=== PATIENT | female | born 1965 | race Caucasian/White ===

== ENCOUNTER 2017-09-20 01:44 | Inpatient (IN) ==
[2017-09-20] MEDS ORDERED: methylPREDNISolone 125 MG/2 ML VIAL IVP ONE (01:51)
[2017-09-20] MEDS ORDERED: 0.9 % Sodium Chloride 1,000 ML IVC ONE (01:51)
[2017-09-20] MEDS ORDERED: Ipratropium/Albuterol Neb 3 ML IH ONE (01:51)
--- NOTE | 2017-09-20 01:57 | Emergency Department Note ---
Disposition Clinical Impression: COPD exacerbation Disposition: Admitted As Inpatient Condition: Good SOB HPI - General Chief Complaint: ED Shortness of Breath/Dyspnea Stated Complaint: EULOGIO Time Seen by Provider: 09/20/17 01:46 Source: patient Mode of arrival: private vehicle Limitations: no limitations Nursing Notes Reviewed: Yes Vital Signs Reviewed: Yes - History of Present Illness 52-year-old female history of chronic smoking for 30 years presents to the ER with a chief complaint of shortness of breath. Symptoms onset for about one week. Reports a cough with productive sputum during this time. No formal diagnosis of COPD. She is not on oxygen supplementation at home nor does she take any inhalers. States worsening of symptoms today which prompted her to come here. No history of coronary artery disease, DVT or pulmonary embolism. No other complaints. Pt Subjective Complaint: shortness of breath, cough Onset (ago): day(s) Context: recent illness Severity: moderate Consistency/Duration: constant Improves with: nothing Worsens with: nothing Associated symptoms: Reports: cough, sputum production. Denies: chest pain, fever Treatment prior to arrival: none Cough present: Yes Cough Description: Involuntary Cough Frequency: Intermittent - Related Data Home oxygen amount: none Home Medications Medication Instructions Recorded Confirmed Escitalopram [Lexapro] 10 mg PO DAILY 09/20/17 09/20/17 Allergies Allergy/AdvReac Type Severity Reaction Status Date / Time No Known Allergies Allergy Verified 09/20/17 01:58 All systems ED: reviewed and negative except as stated. Constitutional: Denies: fever Cardiovascular: Denies: chest pain Respiratory: Reports: cough, dyspnea, sputum production Gastrointestinal: Denies: nausea, vomiting Past Medical History - Past Medical History Attestation: Yes The following information was validated with the patient. Source: patient Medical history: Reports: no medical history Physical Exam - General Limitations: no limitations General appearance: alert, in distress - Head Head exam: atraumatic, normocephalic - Eye Eye exam: Present: normal appearance - ENT ENT exam: normal exam - Neck Neck exam: Present: normal inspection - Chest Chest inspection: Present: normal inspection, symmetric chest wall rise - Respiratory Respiratory exam: Present: respiratory distress, wheezes (Diminished breath sounds bilaterally with end-expiratory wheezing.) - Cardiovascular Cardiovascular exam: Present: regular rate, normal rhythm, normal heart sounds - Abdominal Exam Abdominal exam: Present: soft, Non-Tender. Absent: tenderness - Extremities Exam Extremities exam: Present: normal inspection, full ROM - Expanded Upper Extremity Exam Shoulder exam: Present: normal inspection, full ROM Arm exam: Present: normal inspection, full ROM Elbow exam: Present: normal inspection, full ROM Forearm/Wrist exam: Present: normal inspection, full ROM Hand exam: Present: normal inspection, full ROM - Expanded Lower Extremity Exam Hip/Pelvis exam: Present: normal inspection, full ROM Upper leg exam: Present: normal inspection, full ROM Knee exam: Present: normal inspection, full ROM Lower leg exam: Present: normal inspection, full ROM Ankle exam: Present: normal inspection, full ROM Foot/toe exam: Present: normal inspection, full ROM - Skin Skin exam: Present: warm, dry Course Course Narrative: Patient seen and examined. Vital signs reviewed. Plan for triple DuoNeb treatment, Solu-Medrol, EKG, chest x-ray and labs. - Reevaluation(s) Reevaluation #1: Remains hypoxic on 4 L. Penetrating up to 6 L nasal cannula. Agreeable with staying. Improved aeration after DuoNeb treatments. Vital Signs Temperature 98.1 F 09/20/17 01:52 Pulse Rate 53 09/20/17 01:52 Respiratory Rate 24 09/20/17 01:52 Blood Pressure 144/120 09/20/17 01:52 O2 Sat by Pulse Oximetry 95 09/20/17 01:52 Temperature 98 F 09/20/17 04:31 Pulse Rate 71 09/20/17 04:31 Respiratory Rate 16 09/20/17 04:31 Blood Pressure 106/61 09/20/17 04:31 O2 Sat by Pulse Oximetry 91 09/20/17 04:31 Oxygen Delivery Oxygen Delivery Nasal Cannula Shortness of Breath/Dyspnea - [facility] Narrative Medical decision making narrative: 52-year-old female with shortness of breath for one week. Has smoked for 30 years. No O2 requirement or inhalers at home. Initially hypoxic on room air. EKG and chest x-ray without acute findings. Labs reviewed in no acute derangements. Improved aeration with DuoNeb treatments. Requiring oxygen supplementation. Given Levaquin for COPD exacerbation and admitted. - Lab Data Lab results reviewed: Yes I reviewed the patient's lab results. Result diagrams: 09/20/17 02:05 09/20/17 02:05 Lab Results 09/20/17 09/20/17 09/20/17 Range/Units 02:05 02:05 02:05 WBC 11.7 H (4.3-11.1) K/mcL RBC 4.85 (3.82-4.97) M/mcL Hgb 14.9 (11.5-15.4) g/dL Hct 43.5 (35.3-44.9) % MCV 89.7 (83.0-100.0) fL MCH 30.7 (28.0-33.3) pg MCHC 34.3 (31.6-35.5) g/dL RDW 12.5 (11.5-14.5) % Plt Count 220 (140-400) K/mcL MPV 10.5 (9.4-12.4) fL Immature Gran % 0.5 (0-4) % Seg Neutrophils % 61.5 % Lymphocytes % 22.1 % Monocytes % 9.7 % Eosinophils % 5.6 % Basophils % 0.6 % Neutrophils # 7.2 (1.6-8.9) K/mcL Lymphocytes # 2.6 (0.6-4.6) K/mcL Monocytes # 1.1 (0.0-1.3) K/mcL Eosinophils # 0.7 H (0.0-0.6) K/mcL Basophils # 0.1 (0.0-0.2) K/mcL Sodium 131 L (136-145) mEq/L Potassium 4.3 (3.5-5.1) mEq/L Chloride 99 (98-107) mEq/L Carbon Dioxide 26 (23-29) mEq/L BUN 15 (6-20) mg/dL Creatinine 0.68 (0.60-1.20) mg/dL Est GFR ( Amer) > 60 (> 60) Est GFR (Non-Af Amer) > 60 (> 60) BUN/Creatinine Ratio 22 (6-26) Glucose 122 H (70-105) mg/dL Calculated Osmolality 274 L (280-300) Lactic Acid 0.7 (0.5-2.2) mmol/L Calcium 8.7 (8.6-10.3) mg/dL Troponin I < 0.03 (< 0.04) ng/mL B-Natriuretic Peptide (Less than 100) pg/mL Triglycerides (< 150) mg/dL Cholesterol (< 200) mg/dL LDL Cholesterol, Calc (0-99) mg/dL VLDL Cholesterol, Calc (< 31) mg/dL HDL Cholesterol (40-59) mg/dL Cholesterol/HDL Ratio (0-4.9) 09/20/17 09/20/17 Range/Units 02:05 04:43 WBC (4.3-11.1) K/mcL RBC (3.82-4.97) M/mcL Hgb (11.5-15.4) g/dL Hct (35.3-44.9) % MCV (83.0-100.0) fL MCH (28.0-33.3) pg MCHC (31.6-35.5) g/dL RDW (11.5-14.5) % Plt Count (140-400) K/mcL MPV (9.4-12.4) fL Immature Gran % (0-4) % Seg Neutrophils % % Lymphocytes % % Monocytes % % Eosinophils % % Basophils % % Neutrophils # (1.6-8.9) K/mcL Lymphocytes # (0.6-4.6) K/mcL Monocytes # (0.0-1.3) K/mcL Eosinophils # (0.0-0.6) K/mcL Basophils # (0.0-0.2) K/mcL Sodium (136-145) mEq/L Potassium (3.5-5.1) mEq/L Chloride (98-107) mEq/L Carbon Dioxide (23-29) mEq/L BUN (6-20) mg/dL Creatinine (0.60-1.20) mg/dL Est GFR ( Amer) (> 60) Est GFR (Non-Af Amer) (> 60) BUN/Creatinine Ratio (6-26) Glucose (70-105) mg/dL Calculated Osmolality (280-300) Lactic Acid (0.5-2.2) mmol/L Calcium (8.6-10.3) mg/dL Troponin I (< 0.04) ng/mL B-Natriuretic Peptide 27 (Less than 100) pg/mL Triglycerides 51 (< 150) mg/dL Cholesterol 133 (< 200) mg/dL LDL Cholesterol, Calc 73 (0-99) mg/dL VLDL Cholesterol, Calc 10 (< 31) mg/dL HDL Cholesterol 50 (40-59) mg/dL Cholesterol/HDL Ratio 2.7 (0-4.9) - Radiology Data Radiology results reviewed: Yes I reviewed the patient's radiology results. Chest X-Ray 09/20/17 01:51 IMPRESSION: COPD with no acute finding in the chest. D/ / Deep Nix MD / Deep Nix MD Interpreting Provider: Deep Nix MD - EKG Data EKG attestation: Yes I reviewed and interpreted this EKG. EKG results narrative: EKG was sinus bradycardia rate 53. Normal axis. Normal intervals. Normal R- wave progression. No gross ST elevations or depressions. No acute ischemic findings. No prior EKG for comparison. S.B.A.RFatoumata - Evonne.Jg Situation: Demographics, MOA Background: Presenting Complaint, Relevant PMH, Meds, & Allergies Assessment: Vital Signs, Course and respsone to treatment, Exam Concerns, Patient/Family Expectation, Pertinant Lab Results Recommendation: Barrier(s) to disposition, Recommendation based on pending studies, treatments, or consults S.B.A.RFatoumata Report Given to: Dr. Ann-Marie Siegel Repor Time: 03:23 Attestation Statement - Attestation Attestation: I examined this patient and my medical decision-making was reviewed with the Resident Physician. I agree with the documented findings, disposition and treatment plan as described except to the extent set forth below. Findings consistent with COPD exacerbation. We will start Levaquin, bronchodilators, steroids. Patient had hypoxia we will proceed with admission for further management.
[2017-09-20 02:19] LABS: Basophils # 0.1 K/mcL (0.0-0.2); Basophils % 0.6 %; Eosinophils # 0.7 K/mcL (0.0-0.6); Eosinophils % 5.6 %; Hematocrit 43.5 % (35.3-44.9); Hemoglobin 14.9 g/dL (11.5-15.4); Immature Granulocytes % 0.5 % (0-4); Lymphocytes # 2.6 K/mcL (0.6-4.6); Lymphocytes % 22.1 %; Mean Corpuscular HGB Conc 34.3 g/dL (31.6-35.5); Mean Corpuscular Hemoglobin 30.7 pg (28.0-33.3); Mean Corpuscular Volume 89.7 fL (83.0-100.0); Mean Platelet Volume 10.5 fL (9.4-12.4); Monocytes # 1.1 K/mcL (0.0-1.3); Monocytes % 9.7 %; Neutrophils # 7.2 K/mcL (1.6-8.9); Platelet Count 220 K/mcL (140-400); Red Blood Count 4.85 M/mcL (3.82-4.97); Red Cell Distribution Width 12.5 % (11.5-14.5); Segmented Neutrophils % 61.5 %
[2017-09-20 02:40] LABS: BUN/Creatinine Ratio 22 (6-26); Blood Urea Nitrogen 15 mg/dL (6-20); Calcium 8.7 mg/dL (8.6-10.3); Carbon Dioxide 26 mEq/L (23-29); Chloride 99 mEq/L (98-107); Glucose 122 mg/dL (70-105); Osmolality,Calculated 274 (280-300); Potassium 4.3 mEq/L (3.5-5.1); Sodium 131 mEq/L (136-145); eGFR For African Americans > 60 (> 60); eGFR For Non-African Americans > 60 (> 60)
[2017-09-20 02:41] LABS: Troponin I < 0.03 ng/mL (< 0.04)
[2017-09-20] MEDS ORDERED: Levofloxacin 500 MG/100 ML 500 MG/100 ML BAG IVPB ONE (02:59)
[2017-09-20] MEDS ORDERED: Acetaminophen 325 MG TABLET PO PRN (03:30)
[2017-09-20] MEDS ORDERED: Naloxone 0.4 MG/ML INJ IVP PRN (03:30)
--- NOTE | 2017-09-20 03:56 | Internal Med History&Physical ---
Date of Encounter: 09/20/17 Time of Encounter: 03:53 Internal Medicine - H&P: HPI Chief complaint: Shortness of breath Admitted From: Emergency Dept Plans for Post Hospital Care: Home History of present illness: Ms. Basurto is a 52 year old female with extensive history of tobacco abuse and no other medical conditions and she rarely see medical providers who presents with 1 week's worth of shortness of breath that has been progressively getting worse with associated productive cough. She also reports subjective fevers. It has worsened to the point where she was having trouble catching her breath today. She presented to the ED because of the above symptoms and was noted to be hypoxic into the 80s and was in significant respiratory distress and was put on supplemental oxygen up to 6 L with sats only in the low 90s while on that. She was given multiple nebs as well as IV Solu-Medrol for suspected COPD. The patient does not have an official diagnosis of COPD yet. Chest x-ray was clear. The patient had mild leukocytosis at 11.7. Sodium was 131 with normal kidney function and glucose was 122. EKG with no ST or T-wave changes. Past Med Surg Social Fam HX - Past Medical History Medical history: no medical history Psychiatric history: depression - Social History Smoking Status: Current every day smoker Smokeless Tobacco Status: No Alcohol use: none Drug use: none Internal Medicine - H&P: Meds Escitalopram [Lexapro] 10 mg PO DAILY 09/20/17 [History] 3 Allergy/AdvReac Type Severity Reaction Status Date / Time No Known Allergies Allergy Verified 09/20/17 01:58 All Systems PM: A 10-system review of systems was performed and is negative for pertinent findings except as documented above in the HPI. Review of systems: All systems reviewed are negative except as mentioned above - Constitutional Vitals: Temp Pulse Resp BP Pulse Ox 98.1 F 87 20 116/66 95 09/20/17 01:52 09/20/17 03:46 09/20/17 03:46 09/20/17 03:46 09/20/17 03:46 Exam: GEN: NAD HEENT: AT, NC, No cyanosis, oral mucosa is moist, No JVD Lymphatics: No lymphadenoapthy Eyes: Extrocular muscles intact, anicteric CVS:RRR. S1, S2, No m/r/g RESP: Diminished breath sounds with posterior expiratory wheezes in the lower lung ABD: Soft, NT, ND, +BS EXT: No edema, No rashes, 2+ DP NEURO: Nonfocal, CN II-XII intact, No focal motor or sensory deficits Psych: Cooperative, Not anxious or depressed Internal Med - H&P Results - Labs CBC & Chem 7: 09/20/17 02:05 09/20/17 02:05 Labs: Short CBC 09/20/17 Range/Units 02:05 WBC 11.7 H (4.3-11.1) K/mcL Hgb 14.9 (11.5-15.4) g/dL Hct 43.5 (35.3-44.9) % Plt Count 220 (140-400) K/mcL Neutrophils # 7.2 (1.6-8.9) K/mcL BMP 09/20/17 02:05 Sodium 131 L Potassium 4.3 Chloride 99 Carbon Dioxide 26 BUN 15 Creatinine 0.68 Glucose 122 H Calcium 8.7 Cardiac Enzymes 09/20/17 Range/Units 02:05 Troponin I < 0.03 (< 0.04) ng/mL - Impressions ITS Impressions Chest X-Ray 09/20/17 01:51 IMPRESSION: COPD with no acute finding in the chest. D/ / Deep Nix MD / Deep Nix MD Interpreting Provider: Deep Nix MD - Assessment and plan (1) Acute respiratory failure with hypoxia Current Visit: Yes Status: Acute Assessment and plan: Likely an exacerbation of COPD given her symptoms and presentation. No formal diagnosis of COPD and the patient will likely need PFTs as an outpatient. We will treat as COPD exacerbation with IV Solu-Medrol every 8 hours and scheduled nebs. We will put on IV Levaquin. Check sputum cultures. Patient was asked if she could leave in the morning however I told her I doubt that she would make enough of a recovery to be able to be discharged early in the morning but it will be up to the provider will see her in the morning.. (2) Elevated glucose Current Visit: Yes Status: Acute Assessment and plan: No diagnosis of diabetes. We will check A1c. (3) Hyponatremia Current Visit: Yes Status: Acute Assessment and plan: We will try gentle hydration for now and check labs in the morning. (4) Tobacco abuse Current Visit: Yes Status: Acute Assessment and plan: Nicotine patch (5) DVT prophylaxis Current Visit: Yes Status: Acute Assessment and plan: Heparin subcutaneous - Time Spent With Patient Total time spent is greater than 50% in coordination of care (as documented) at patient's floor/unit and/or counseling patient:
[2017-09-20] MEDS: Ipratropium/Albuterol Neb 3 ML IH SCH ×3 (04:40→16:12)
[2017-09-20] MEDS: 0.9 % Sodium Chloride 1,000 ML IVC SCH ×2 (05:26→16:37)
[2017-09-20] MEDS: *HR* Heparin 5,000 UNIT/ML VIAL SQ SCH ×2 (05:38→14:11)
[2017-09-20 05:56] LABS: Chol/HDL Ratio 2.7 (0-4.9)
[2017-09-20 07:15] LABS: Estimated Average Glucose 126 mg/dl
[2017-09-20] MEDS ORDERED: Nicotine 21 MG PATCH.TD24 TD SCH (09:00)
[2017-09-20] MEDS: methylPREDNISolone 125 MG/2 ML VIAL IVP SCH ×2 (09:13→17:57)
[2017-09-20 11:08] VITALS: BP 100/52
--- NOTE | 2017-09-20 16:30 | Discharge Summary ---
- NOTES TO OUTPATIENT PROVIDER Notes to Outpatient Provider: Suspect patient has COPD. Needs full PFTs to include DLCO and lung volumes Date of Encounter: 09/20/17 Time of Encounter: 11:00 - Discharge Diagnosis (1) Acute respiratory failure with hypoxia Priority: Primary Status: Acute Assessment and Plan: Likely an exacerbation of COPD given her symptoms and presentation. No formal diagnosis of COPD and the patient will likely need PFTs as an outpatient. We will treat as COPD exacerbation with IV Solu-Medrol every 8 hours and scheduled nebs. We will put on IV Levaquin. Check sputum cultures. Patient was asked if she could leave in the morning however I told her I doubt that she would make enough of a recovery to be able to be discharged early in the morning but it will be up to the provider will see her in the morning.. (2) Elevated glucose Priority: Secondary Status: Acute (3) Hyponatremia Priority: Secondary Status: Acute (4) DVT prophylaxis Priority: Secondary Status: Acute (5) Tobacco abuse Priority: Secondary Status: Acute Hospital course: Ms. Basurto is a 52 year old female with extensive history of tobacco abuse and no other medical conditions and she rarely see medical providers who presents with 1 week's worth of shortness of breath that has been progressively getting worse with associated productive cough. She also reports subjective fevers. It has worsened to the point where she was having trouble catching her breath today. She presented to the ED because of the above symptoms and was noted to be hypoxic into the 80s and was in significant respiratory distress and was put on supplemental oxygen up to 6 L with sats only in the low 90s while on that. She was given multiple nebs as well as IV Solu-Medrol for suspected COPD. The patient does not have an official diagnosis of COPD yet. Chest x-ray was clear. The patient had mild leukocytosis at 11.7. Sodium was 131 with normal kidney function and glucose was 122. EKG with no ST or T-wave changes. 09/20/17: Patient did well overnight. Her symptoms improved. Wheezing was improved. She was weaned off supplemental oxygen. Patient was given a dose of Levaquin on arrival but then transition to 5 days of oral azithromycin for suspected bronchitis. She was also placed on a steroid taper, starting with prednisone 40 mg by mouth daily, weaning off over the next 10 days. Patient was counseled extensively on smoking cessation. She has never had pulmonary function tests and these were advised, since sent to primary care provider. She otherwise was doing well and deemed stable for discharge. Patiently was initially admitted with the expectation she would require 2 nights in the hospital. She improved much more quickly than expected and was stable enough for discharge on hospital day number 1. Discharge discussed with: patient Time spent discussing smoking cessation with patient: 3 to 10 minutes - Time Spent with Patient Total time spent providing and/or coordinating discharge services: Less than 30 minutes - Discharge Medications Home Medications: Escitalopram [Lexapro] 10 mg PO DAILY 09/20/17 [History] Allergies/Adverse Reactions: 3 Allergy/AdvReac Type Severity Reaction Status Date / Time No Known Allergies Allergy Verified 09/20/17 01:58 Date of admission: 09/20/17 05:06 Primary care physician: Jay Izaguirre MD Consults: 09/20/17 06:10 Consult to Nutrition [CONS] Routine Comment: Consulting Provider: NUTRITION Reason for Dietary Consult: Diet Education Discharging clinician: Peyman Cardoza Anticipated date of discharge: 09/20/17 - Constitutional Vitals: Temp Pulse Resp BP Pulse Ox 97.9 F 90 17 100/52 92 09/20/17 11:00 09/20/17 11:00 09/20/17 11:00 09/20/17 11:00 09/20/17 11:00 General appearance: Present: pleasant, no acute distress - Head Head exam: Present: atraumatic, normocephalic - Eye Eye exam: Present: PERRL, conjuntiva pink, sclera anicteric Pupils: Present: PERRL - Neck Neck exam general surgery: Present: supple, trachea midline. Absent: lymphadenopathy - Respiratory Respiratory exam: Present: decreased breath sounds, wheezes. Absent: accessory muscle use, rales, rhonchi - Cardiovascular Cardiovascular exam: Present: RRR, +S1, +S2. Absent: diastolic murmur, gallop, rubs, systolic murmur - GI/Abdominal GI/Abdominal exam: Present: normal bowel sounds, soft, no peritoneal signs. Absent: distended, tenderness - Extremities Exam Extremities exam: Present: warm, radial pulses palpable and symmetrical. Absent : calf tenderness, cyanotic, pedal edema - Neurological Exam Neurological exam: Present: CN II-XII intact, oriented X3, no focal deficits. Absent: pronater drift, facial droop, speech deficit - Skin Skin exam: Present: dry, intact - Patient Status Disposition: Home, Self-Care Condition: Good Functional capacity at discharge: independent ambulation Overall status at discharge: patient is progressing back to baseline - Discharge Instructions Instructions: Chronic Obstructive Pulmonary Disease (DC), How to Stop Smoking, Certified Meeting Professional (GEN), How to Stop Smoking (DC) Follow Up With: Jay Izaguirre MD [Primary Care Provider] - - Diet and Activity Activity: increase activity as tolerated Diet: advance to your usual diet
[2017-09-21] MEDS ORDERED: Levofloxacin 500 MG/100 ML 500 MG/100 ML BAG IVPB SCH (04:00)
--- NOTE | 2017-09-21 17:37 | Electrocardiograph Report ---
[address] [place], [place] [address] Test Date: 2017-09-20 Pat Name: Kadie Basurto Department: 103 Room: 3A52 Gender: F Music Engineer: NAINA : [id number] Requested By: Josh Barajas Order Number: [id number] Reading MD: Tomasa German Measurements Intervals [place] Rate: 53 P: 46 PA: 124 QRS: -38 QRSD: 83 T: 52 QT: 426 QTc: 410 Interpretive Statements SINUS BRADYCARDIA LEFT AXIS DEVIATION [QRS AXIS < -30] ANTEROSEPTAL MYOCARDIAL INFARCTION [40+ ms Q WAVE IN V1-V4], OF INDETERMINATE AGE Electronically Signed On 09-21-2017 17:35:37 EDT by Tomasa German
== END 2017-09-20 18:16 | disposition home or self-care (01) | DRG 190 ==
LOC: EMEROO 01:44 → 3ANU 01:44
PROVIDERS: ADMIT Internal Medicine; ATTEND Internal Medicine